=== PATIENT | female | born 1990 | race Caucasian/White ===

== ENCOUNTER 2017-12-20 21:48 | Emergency (ER) | payer BC ==
[2017-12-20 21:53] VITALS: BP 117/75
--- NOTE | 2017-12-20 22:21 | EDPHY ---
H & P Stated Complaint: pressure mid chest radiates into back intermittantly for 2hrs Time Seen by Provider: 12/20/17 21:55 HPI/ROS: Chief Complaint: Chest discomfort HPI: 27-year-old woman began having chest discomfort shortly after laying down about 7:00 a.m. This evening after eating dinner. She is describing it as a tightness in the center of her chest. She also had this full sensation in the back of her throat. She has had multiple episodes of this in the past. She has seen her primary care physician abnormal ECGs. She has also had a normal echocardiogram. She never gets pain on exertion. Often wakes her up at night. No cough or shortness of breath. No leg pain or swelling. No recent travel. No heart palpitations or heart racing. No nausea or vomiting. No dark black tarry stools. She is not on oral contraceptives. She does not smoke. No family history of coronary artery disease. Pain is started about a 1/10. At worst was a 7/10. It resolved about 30 min ago. ROS: 10 systems were reviewed and were negative except those elements noted in the HPI. PMH: Denies Social History: No smoking, rare alcohol, no recreational drug use Family History: non-contributory Physical Exam: Gen: Awake, Alert, No Distress HEENT: Nose: no rhinorrhea Eyes: PERRLA, EOMI Mouth: Moist mucosa Neck: Supple, no JVD Chest: nontender, lungs clear to auscultation Heart: S1, S2 normal, no murmur Abd: Soft, non-tender, no guarding Back: no CVA tenderness, no midline tenderness Ext: no edema, non-tender Skin: no rash Neuro: CN II-XII intact, Sensation grossly intact, Strength 5/5 in bilateral upper and lower extremities - Personal History LMP (Females 10-55): IUD In Place Current Tetanus/Diphtheria Vaccine: Unsure Current Tetanus Diphtheria and Acellular Pertussis (TDAP): Unsure - Medical/Surgical History Hx Asthma: No Hx Chronic Respiratory Disease: No Hx Diabetes: No Hx Cardiac Disease: No Hx Renal Disease: No Hx Cirrhosis: No Hx Alcoholism: No Hx HIV/AIDS: No Hx Splenectomy or Spleen Trauma: No Other PMH: left knee surgery - Social History Smoking Status: Never smoked Constitutional: Initial Vital Signs Temperature (C) 36.5 C 12/20/17 21:49 Heart Rate 81 12/20/17 21:49 Respiratory Rate 16 12/20/17 21:49 Blood Pressure 117/75 12/20/17 21:49 O2 Sat (%) 97 12/20/17 21:49 O2 Delivery Mode Room Air Allergies/Adverse Reactions: No Known Allergies Allergy (Unverified 12/20/17 21:53) Home Medications: Medication Instructions Recorded NK [No Known Home Meds] 12/20/17 Medical Decision Making ED Course/Re-evaluation: 19-year-old woman presenting with chest discomfort and the fullness sensation the back of her throat while laying down shortly after eating. She has had this in the past. She has seen a primary care physician. ECG is a been normal. She has had a normal echocardiogram. She never gets discomfort on exertion. She has normal vital signs and is pain-free here without any treatment. She has no risk factors for coronary artery disease. Her symptoms sound most consistent with gastrointestinal reflux disease given the pain while laying down shortly after eating and the fullness sensation in her throat. I have explained to her that I do not feel that she has any evidence of acute coronary syndrome. I have offered her an ECG and laboratory evaluations. She is declining these at this time and I think this is appropriate. I have recommend she try famotidine if symptoms recur. Avoid eating before laying down or before bed. Avoid caffeine or chocolate. She will follow up with primary care physician for any concerns. Departure - Departure Disposition: Home, Routine, Self-Care Clinical Impression: GERD (gastroesophageal reflux disease) Condition: Good Instructions: Gastroesophageal Reflux Disease (DC) Additional Instructions: If your symptoms returned take famotidine [id number] for symptom relief. You may also take famotidine before going to bed if you find you continue to have symptoms at night. Follow up with her primary care physician in 3-4 days for re-evaluation. Return to the emergency department for return of chest pain, shortness of breath , fainting, or any other concerns. Referrals: Roberto Coreas MD [Primary Care Provider] - As per Instructions
[2017-12-20] MEDS ORDERED: FAMOTIDINE 20 MG TAB PO ONE (22:23)
== END 2017-12-20 22:36 | disposition home or self-care (01) ==
DX: R07.9 Chest pain, unspecified (principal); K21.9 Gastro-esophageal reflux disease without esophagitis